=== PATIENT | male | born 1975 | race Caucasian/White ===

== ENCOUNTER 2023-03-05 08:55 | Outpatient (OUT) | payer OTHER, SELFPAY ==
--- NOTE | 2023-03-05 08:58 | US_ITS ---
The [address] [address] Patient Name: LUCILA DE LA GARZA MRN: [id number] date: 1975 Sex: M Assigned Patient Location: US Current Patient Location: US Accession/Order Number: [id number] Exam Date: 03/05/2023 09:00 Report Date: 03/06/2023 03:08 At the request of: JASON ROBERTS Procedure: US right upper quadrant EXAM: US right upper quadrant HISTORY: R10.9 RIGHT SIDED ABDOMINAL PAIN COMPARISON: Chest CT 03/08/2021. FINDINGS: Amador-scale and color sonography of the right upper quadrant was performed. LIVER: Hepatomegaly and increased hepatic echogenicity. No suspicious hepatic lesion. Hepatic morphology is normal. No Focal hepatic lesion is present. The imaged IVC and portal vein are patent. BILIARY: No gallstones or biliary duct dilatation. The common duct measures 0.5cm. Sonographic García sign is absent. PANCREAS: Imaged pancreas appears normal. RIGHT KIDNEY: No renal lesion, renal calculi or hydronephrosis. The right kidney measures 12.1cm in sagittal dimension. IMPRESSION: 1. Fatty liver and hepatomegaly with normal hepatic morphology, stable. 2. No biliary duct dilatation or gallstones. Electronically authenticated by: OLIVER HOLBROOK Date: 03/06/2023 03:08
== END 2023-03-05 08:56 ==
LOC: US 08:56
PROVIDERS: PCP Family Medicine; Visit Provider Physician Assistant
DX: R10.11 Right upper quadrant pain (principal); K76.0 Fatty (change of) liver, not elsewhere classified
CPT/HCPCS: 76705

== ENCOUNTER 2024-04-04 07:09 | Outpatient (OUT) | payer OTHER, SELFPAY | END 2024-04-04 07:10 | disposition home or self-care (01) | LOC: PST 07:09 | PROVIDERS: PCP Family Medicine; Visit Provider Surgery | DX: Z01.818 Encounter for other preprocedural examination (principal); Z12.11 Encounter for screening for malignant neoplasm of colon ==

== ENCOUNTER 2025-01-03 13:51 | Outpatient (OUT) | payer OTHER, SELFPAY ==
--- NOTE | 2025-01-03 13:56 | CT_ITS ---
The [address] [address] Patient Name: LUCILA DE LA GARZA MRN: [id number] date: 1975 Sex: M Assigned Patient Location: CT Current Patient Location: CT Accession/Order Number: [id number] Exam Date: 01/03/2025 16:10 Report Date: 01/03/2025 16:13 At the request of: JASON ROBERTS Procedure: CT abdomen pelvis wo/w con CT ABDOMEN AND PELVIS WITH AND WITHOUT INTRAVENOUS CONTRAST: CLINICAL HISTORY: Right Lower Abdominal Pain, Rebound Abdominal Tenderness COMPARISON: None TECHNIQUE: Spiral images were obtained through the abdomen and pelvis before and after the administration of intravenous contrast. This CT exam was performed using one or more following dose reduction techniques: Automated exposure control, adjustment of the mA and/or kV according to patient size, or use of iterative reconstruction technique. FINDINGS: Lung Bases: [No acute process.] Organs:Liver gallbladder portal vein pancreas spleen and adrenal glands all appear unremarkable. Kidneys demonstrate no enhancing mass, stone or hydronephrosis. Aorta appears normal in caliber.[ GI: Stomach is grossly unremarkable. Small bowel appears nondilated. Appendix is normal. No acute colonic abnormality.[ Pelvis:[Urinary bladder and prostate gland appear unremarkable.] Peritoneum/Retroperitoneum:No free air or free fluid or lymphadenopathy.[ Abd wall/Bones:Abdominal wall demonstrates no acute findings. Osseous structures demonstrate degenerative change.[ CT/CT abdomen pelvis wo/w con IMPRESSION: No acute intra-abdominal process. Impression dictated by: Charles Mills Jr., D.O.01/03/2025 4:13 PM Dictation Location: [facility] [id number] Electronically authenticated by: [id number] Y Date: 01/03/2025 16:13
== END 2025-01-03 13:52 | disposition home or self-care (01) ==
LOC: CT 13:51
PROVIDERS: PCP Family Medicine; Visit Provider Physician Assistant
DX: R10.31 Right lower quadrant pain (principal); R10.829 Rebound abdominal tenderness, unspecified site
CPT/HCPCS: 74178; Q9967